=== PATIENT | female | born 1985 | race Caucasian/White ===

== ENCOUNTER 2016-06-10 17:43 | Emergency (ER) | payer OTHER ==
[~2016-06-10] VITALS: Wt 114.8 kg
--- NOTE | ~2016-06-10 | EKG ---
[place], [place] ELECTROCARDIOGRAM REPORT NAME: AMISHA BAI UNIT #: [id number] ROOM: DOCTOR: EVER BOTELLO MD BIRTHDATE: [birth year] DOS: 06/10/2016 TIME: 1849 hours. Normal sinus rhythm at 78 beats per minute. The tracing is normal. No previous tracing is available for comparison. EVER BOTELLO MD CM:EKGRPT:ELECTROCARDIOGRAM REPORT [id number] EVER BOTELLO MD
[~2016-06-10 17:43] MED LIST: AMOXIL500 MG PO; CLARITIN10 MG PO; CLEOCIN150 MG PO; COLACE100 MG PO; DIFLUCAN150 MG PO; HYDROCODONE BIT1 T11 PO; IRON325 M1 PO; KEFLEX500 MG PO; LEXAPRO20 MG PO; MIDRIN (DURADR1 CAP PO; MOTRIN800 MG PO; Motrin,Rufen800 MG PO; NKHM; NORCO 5-325 TA1 EACH PO; OMNICEF300 MG PO; PERCOCET 325 MG1 TA2 PO; PREDNICOT20 MG PO; PRENATAL1 TA1 PO; PRILOSEC40 M1 PO; VICODIN 5/500 505 MG PO; VICODIN ES 7501 TAB PO; ZANTAC 150150 MG PO; ZYRTEC10 M2 PO; Zofran4 MG PO
[2016-06-10] MEDS ORDERED: COREG3.125 MG PO (18:32)
[2016-06-10 18:56] LABS: BASO % 0.6 % (0.0-1.0); EOS # 0.2 10*3/uL (0.0-0.4); EOS % 2.8 % (1.0-4.0); HEMATOCRIT 37.9 % (37.0-47.0); LYMPH # 1.4 10*3/uL (1.3-4.4); LYMPH % 19.6 % (27.0-41.0); MEAN CELL VOLUME 81.5 fl (81.0-99.0); MEAN CORPUSCULAR HGB 25.8 pg (27.0-31.0); MEAN CORPUSCULAR HGB CONC 31.7 g/dl (33.0-37.0); MEAN PLATELET VOLUME 9.4 fl (9.6-12.3); MONO # 0.4 10*3/uL (0.1-1.0); MONO % 5.6 % (3.0-9.0); NEUT # 5.1 10*3/uL (2.3-7.9); NEUT % 71.3 % (47.0-73.0); PLATELET COUNT AUTOMATED 306 10*3/uL (130-400); RED BLOOD COUNT 4.65 10*6/uL (4.10-5.10); RED CELL DISTRI WIDTH 14.8 % (0-14.5); WHITE BLOOD COUNT 7.2 10*3/uL (4.8-10.8)
[2016-06-10 19:13] LABS: ALBUMIN 3.7 gm/dl (3.1-4.5); ALKALINE PHOSPHATASE 83 U/L (45-117); BILIRUBIN, TOTAL 0.3 mg/dl (0.2-1.0); BUN 8 mg/dl (7-24); C-REACTIVE PROTEIN 0.78 MG/DL (0-0.3); CARBON DIOXIDE 27 mmol/L (21-32); CHLORIDE 102 mmol/L (98-107); CPK 57 U/L (26-192); EST GLOM FILT AFRICAN AMERICAN > 60 ml/min; GLUCOSE 119 mg/dL (65-99); LDH 145 U/L (84-246); MAGNESIUM 2.1 mg/dL (1.5-2.1); POTASSIUM 4.1 mmol/L (3.5-5.1); SGOT/AST 18 IU/L (3-35); SGPT/ALT 24 U/L (12-78); SODIUM 139 mmol/L (136-145); TOTAL PROTEIN 7.9 gm/dL (6.4-8.2)
[2016-06-10 19:28] LABS: CKMB < 0.5 ng/ml (0.5-3.6)
== END 2016-06-10 22:09 | disposition home or self-care (01) ==
LOC: ED 17:43
PROVIDERS: Nurse Practitioner Family
DX: I10 Essential (primary) hypertension (principal); K21.9 Gastro-esophageal reflux disease without esophagitis; Z88.6 Allergy status to analgesic agent; Z79.899 Other long term (current) drug therapy

== ENCOUNTER 2016-10-13 16:29 | Emergency (ER) | payer SELFPAY ==
[~2016-10-13] VITALS: Ht 175.2 cm; Wt 113.4 kg
[~2016-10-13 16:29] MED LIST changes: +COREG3.125 MG PO
[2016-10-13] MEDS ORDERED: Motrin,Rufen800 MG PO (17:50)
[2016-10-13] MEDS ORDERED: ULTRAM50 MG PO (17:50)
== END 2016-10-13 17:48 | disposition home or self-care (01) ==
LOC: ED 16:29
DX: S93.402A Sprain of unspecified ligament of left ankle, initial encounter (principal); Z88.6 Allergy status to analgesic agent; W10.9XXA Fall (on) (from) unspecified stairs and steps, initial encounter; Y93.89 Activity, other specified; Y92.9 Unspecified place or not applicable; Y99.9 Unspecified external cause status

== ENCOUNTER 2017-01-08 20:27 | Emergency (ER) | payer OTHER ==
[~2017-01-08] VITALS: Ht 175.2 cm; Wt 69.4 kg
[~2017-01-08 20:27] MED LIST changes: +ULTRAM50 MG PO
[2017-01-08] MEDS ORDERED: ANAPROX DS550 MG PO (21:21)
[2017-01-08] MEDS ORDERED: ROBAXIN500 M1 PO (21:21)
== END 2017-01-08 22:09 | disposition home or self-care (01) ==
LOC: ED 20:27
DX: M54.2 Cervicalgia (principal); M54.5 Low back pain; Z88.6 Allergy status to analgesic agent

== ENCOUNTER 2017-03-13 17:35 | Emergency (ER) | payer OTHER ==
[~2017-03-13] VITALS: Ht 175.2 cm; Wt 113.4 kg
[~2017-03-13 17:35] MED LIST changes: +ANAPROX DS550 MG PO; +ROBAXIN500 M1 PO
[2017-03-13] MEDS ORDERED: NAPROSYN500 MG PO (17:57)
== END 2017-03-13 20:34 | disposition home or self-care (01) ==
LOC: ED 17:35
DX: S60.212A Contusion of left wrist, initial encounter (principal); I10 Essential (primary) hypertension; K21.9 Gastro-esophageal reflux disease without esophagitis; Z88.6 Allergy status to analgesic agent; W22.8XXA Striking against or struck by other objects, initial encounter; Y93.89 Activity, other specified; Y92.9 Unspecified place or not applicable; Y99.9 Unspecified external cause status

== ENCOUNTER 2017-04-24 16:28 | Emergency (ER) | payer SELFPAY ==
[~2017-04-24] VITALS: Wt 70.3 kg
[~2017-04-24 16:28] MED LIST changes: +NAPROSYN500 MG PO
[2017-04-24] MEDS ORDERED: FLONASE ALLERG9.9 ML NAS (16:56)
[2017-04-24] MEDS ORDERED: CLARITIN10 MG PO (16:56)
[2017-04-24] MEDS ORDERED: ROBITUSSIN DM 105 ML PO (16:56)
[2017-04-24] MEDS ORDERED: PREDNISONE10 MG PO (16:56)
== END 2017-04-24 18:10 | disposition home or self-care (01) ==
LOC: ED 16:28
DX: B34.9 Viral infection, unspecified (principal); R03.0 Elevated blood-pressure reading, without diagnosis of hypertension; F10.10 Alcohol abuse, uncomplicated; Z88.6 Allergy status to analgesic agent; Z79.899 Other long term (current) drug therapy

== ENCOUNTER 2017-05-09 19:50 | Emergency (ER) | payer OTHER ==
[~2017-05-09] VITALS: Ht 175.2 cm; Wt 113.4 kg
[~2017-05-09 19:50] MED LIST changes: +FLONASE ALLERG9.9 ML NAS; +PREDNISONE10 MG PO; +ROBITUSSIN DM 105 ML PO
[2017-05-09] MEDS ORDERED: Motrin,Rufen800 MG PO (21:33)
== END 2017-05-09 21:48 | disposition home or self-care (01) ==
LOC: ED 19:50
DX: S80.01XA Contusion of right knee, initial encounter (principal); M25.551 Pain in right hip; Z98.890 Other specified postprocedural states; Z79.899 Other long term (current) drug therapy; Z88.5 Allergy status to narcotic agent; W19.XXXA Unspecified fall, initial encounter; Y93.89 Activity, other specified; Y92.69 Other specified industrial and construction area as the place of occurrence of the external cause; Y99.9 Unspecified external cause status

== ENCOUNTER 2017-06-07 20:01 | Emergency (ER) | payer OTHER ==
[~2017-06-07] VITALS: Ht 175.2 cm; Wt 117.9 kg
[2017-06-07] MEDS ORDERED: Motrin,Rufen800 MG PO (21:18)
== END 2017-06-07 21:15 | disposition home or self-care (01) ==
LOC: ED 20:01
DX: S90.112A Contusion of left great toe without damage to nail, initial encounter (principal); K21.9 Gastro-esophageal reflux disease without esophagitis; I10 Essential (primary) hypertension; Z88.6 Allergy status to analgesic agent; W20.8XXA Other cause of strike by thrown, projected or falling object, initial encounter; Y93.89 Activity, other specified; Y92.89 Other specified places as the place of occurrence of the external cause; Y99.8 Other external cause status

== ENCOUNTER 2017-06-28 17:40 | Emergency (ER) | payer OTHER ==
[~2017-06-28] VITALS: Ht 175.2 cm; Wt 108.9 kg
[2017-06-28] MEDS ORDERED: CYCLOBENZAPRINE10 MG PO (18:14)
[2017-06-28] MEDS ORDERED: MEDROL DOSEPAK4 MG PO (18:14)
[2017-06-28] MEDS ORDERED: NAPROSYN500 MG PO (18:14)
[2017-06-29] MEDS ORDERED: ANAPROX DS550 MG PO (23:16)
== END 2017-06-28 18:26 | disposition home or self-care (01) ==
LOC: ED 17:40
DX: S46.911A Strain of unspecified muscle, fascia and tendon at shoulder and upper arm level, right arm, initial encounter (principal); Z98.890 Other specified postprocedural states; Z79.899 Other long term (current) drug therapy; Z88.5 Allergy status to narcotic agent; X50.1XXA Overexertion from prolonged static or awkward postures, initial encounter; Y93.89 Activity, other specified; Y92.89 Other specified places as the place of occurrence of the external cause; Y99.9 Unspecified external cause status

== ENCOUNTER 2017-06-29 22:01 | Emergency (ER) | payer OTHER ==
[~2017-06-29] VITALS: Ht 175.2 cm; Wt 113.4 kg
[~2017-06-29 22:01] MED LIST changes: +CYCLOBENZAPRINE10 MG PO; +MEDROL DOSEPAK4 MG PO
[2017-06-29] MEDS ORDERED: ANAPROX DS550 MG PO (23:16)
== END 2017-06-29 23:51 | disposition home or self-care (01) ==
LOC: ED 22:01
DX: S93.691A Other sprain of right foot, initial encounter (principal); Z88.6 Allergy status to analgesic agent; Z79.899 Other long term (current) drug therapy; W10.8XXA Fall (on) (from) other stairs and steps, initial encounter; Y93.01 Activity, walking, marching and hiking; Y92.89 Other specified places as the place of occurrence of the external cause; Y99.8 Other external cause status

== ENCOUNTER → 2017-07-31 | Outpatient (CLI) | payer OTHER | END | disposition home or self-care (01) | LOC: MRI 11:00 | DX: S92.911D Unspecified fracture of right toe(s), subsequent encounter for fracture with routine healing (principal); S93.324D Dislocation of tarsometatarsal joint of right foot, subsequent encounter; R60.9 Edema, unspecified; X58.XXXD Exposure to other specified factors, subsequent encounter; Z91.81 History of falling ==

== ENCOUNTER → 2017-09-16 | Outpatient (CLI) | payer OTHER | END | disposition home or self-care (01) | LOC: RAD 10:21 | DX: M54.5 Low back pain (principal); M54.16 Radiculopathy, lumbar region; Z91.81 History of falling ==

== ENCOUNTER 2017-12-10 18:02 | Emergency (ER) | payer OTHER ==
[~2017-12-10] VITALS: Ht 175.2 cm; Wt 113.4 kg
[2017-12-10] MEDS ORDERED: Motrin,Rufen800 MG PO (20:04)
== END 2017-12-10 20:20 | disposition home or self-care (01) ==
LOC: ED 18:02
DX: S09.90XA Unspecified injury of head, initial encounter (principal); M54.2 Cervicalgia; Z98.890 Other specified postprocedural states; Z88.5 Allergy status to narcotic agent; W01.198A Fall on same level from slipping, tripping and stumbling with subsequent striking against other object, initial encounter; Y93.89 Activity, other specified; Y92.098 Other place in other non-institutional residence as the place of occurrence of the external cause; Y99.9 Unspecified external cause status

== ENCOUNTER 2018-03-11 19:06 | Emergency (ER) | payer OTHER ==
[~2018-03-11] VITALS: Ht 175.2 cm; Wt 108.9 kg
[2018-03-11] MEDS ORDERED: CEPHALEXIN500 M1 PO (20:09)
== END 2018-03-11 20:37 | disposition home or self-care (01) ==
LOC: ED 19:06
DX: S91.331A Puncture wound without foreign body, right foot, initial encounter (principal); Z23 Encounter for immunization; Z98.890 Other specified postprocedural states; Z88.5 Allergy status to narcotic agent; W22.8XXA Striking against or struck by other objects, initial encounter; Y93.89 Activity, other specified; Y92.89 Other specified places as the place of occurrence of the external cause; Y99.9 Unspecified external cause status

== ENCOUNTER 2019-12-10 16:06 | Emergency (ER) | payer OTHER ==
[~2019-12-10] VITALS: Ht 175.2 cm; Wt 113.4 kg
[~2019-12-10 16:06] MED LIST changes: +CEPHALEXIN500 M1 PO
[2019-12-10 17:33] LABS: BASO % 0.7 % (0.0-1.0); EOS # 0.2 10*3/uL (0.0-0.4); EOS % 3.7 % (1.0-4.0); HEMATOCRIT 36.1 % (37.0-47.0); LYMPH # 1.2 10*3/uL (1.3-4.4); LYMPH % 21.7 % (27.0-41.0); MEAN CELL VOLUME 80.9 fl (81.0-99.0); MEAN CORPUSCULAR HGB CONC 29.6 g/dl (33.0-37.0); MEAN PLATELET VOLUME 9.8 fl (9.6-12.3); MONO # 0.5 10*3/uL (0.1-1.0); MONO % 8.3 % (3.0-9.0); NEUT # 3.7 10*3/uL (2.3-7.9); NEUT % 65.4 % (47.0-73.0); PLATELET COUNT AUTOMATED 269 10*3/uL (130-400); RED BLOOD COUNT 4.46 10*6/uL (4.10-5.10); RED CELL DISTRI WIDTH 15.5 % (0-14.5); WHITE BLOOD COUNT 5.6 10*3/uL (4.8-10.8)
[2019-12-10 17:44] LABS: ACT PARTIAL THROMBO TIME 28.2 SECONDS (20.0-32.1)
[2019-12-10 18:02] LABS: ALBUMIN 3.5 gm/dl (3.1-4.5); ALKALINE PHOSPHATASE 84 U/L (45-117); BUN 10 mg/dl (7-24); CHLORIDE 111 mmol/L (98-107); CREATININE 0.82 mg/dL (0.55-1.02); LIPASE 71 U/L (73-393); POTASSIUM 4.3 mmol/L (3.5-5.1); SGOT/AST 46 IU/L (3-35); SGPT/ALT 49 U/L (12-78); SODIUM 140 mmol/L (136-145); TOTAL PROTEIN 7.4 gm/dL (6.4-8.2)
[2019-12-10 18:13] LABS: BETA-HCG, QUANT < 1.0 mIU/mL (1-3); TROPONIN I < 0.015 ng/ml (<0.045)
[2019-12-10 18:34] LABS: BACTERIA 1+; BILIRUBIN NEGATIVE (NEGATIVE); BLOOD NEGATIVE (NEGATIVE); CLARITY CLEAR (CLEAR); COLOR YELLOW (YELLOW); EPITHELIAL CELLS 41-50; GLUCOSE NEGATIVE (NEGATIVE); KETONE TRACE (NEGATIVE); LEUKO ESTERASE NEGATIVE (NEGATIVE); NITRITE NEGATIVE (NEGATIVE); RBC 0-2 rbc/hpf (0-2); UROBILINOGEN 0.2 E.U./dl (0.2-1.0)
== END 2019-12-10 16:30 | disposition home or self-care (01) ==
LOC: ED 16:06
PROVIDERS: Emergency Medicine
DX: I10 Essential (primary) hypertension (principal); F17.200 Nicotine dependence, unspecified, uncomplicated; Z88.5 Allergy status to narcotic agent; Z90.49 Acquired absence of other specified parts of digestive tract

== ENCOUNTER 2020-09-16 16:31 | Emergency (ER) | payer BC ==
[~2020-09-16] VITALS: Ht 175.2 cm; Wt 113.4 kg
== END 2020-09-16 18:07 | disposition home or self-care (01) ==
LOC: ED 16:31
DX: J02.8 Acute pharyngitis due to other specified organisms (principal); K21.9 Gastro-esophageal reflux disease without esophagitis; I10 Essential (primary) hypertension; Z20.822 Contact with and (suspected) exposure to COVID-19; Z98.890 Other specified postprocedural states

== ENCOUNTER 2021-09-29 08:50 | Emergency (ER) | payer OTHER ==
[~2021-09-29] VITALS: Ht 175.2 cm; Wt 117.9 kg
[2021-09-29] MEDS ORDERED: CEPHALEXIN500 M1 PO (10:54)
[2021-09-29] MEDS ORDERED: NAPROXEN250 MG PO (10:54)
[2021-09-29] MEDS ORDERED: TYLENOL325 M1 PO (10:54)
== END 2021-09-29 11:15 | disposition home or self-care (01) ==
LOC: ED 08:50
DX: S92.424A Nondisplaced fracture of distal phalanx of right great toe, initial encounter for closed fracture (principal); S20.212A Contusion of left front wall of thorax, initial encounter; S49.92XA Unspecified injury of left shoulder and upper arm, initial encounter; K21.9 Gastro-esophageal reflux disease without esophagitis; I10 Essential (primary) hypertension; Z88.6 Allergy status to analgesic agent; Z98.890 Other specified postprocedural states; Z90.49 Acquired absence of other specified parts of digestive tract; W10.8XXA Fall (on) (from) other stairs and steps, initial encounter; Y93.89 Activity, other specified; Y92.89 Other specified places as the place of occurrence of the external cause; Y99.8 Other external cause status

== ENCOUNTER → 2022-09-17 | Outpatient (CLI) | payer OTHER ==
[~2022-09-17] MED LIST changes: +NAPROXEN250 MG PO; +TYLENOL325 M1 PO
[2022-09-17 11:08] LABS: BASO # 0.1 10*3/uL (0.0-0.1); BASO % 0.8 % (0.0-1.0); EOS # 0.2 10*3/uL (0.0-0.4); EOS % 2.8 % (1.0-4.0); HEMATOCRIT 38.6 % (37.0-47.0); LYMPH # 1.5 10*3/uL (1.3-4.4); LYMPH % 21.1 % (27.0-41.0); MEAN CELL VOLUME 77.5 fl (81.0-99.0); MEAN CORPUSCULAR HGB 23.5 pg (27.0-31.0); MEAN CORPUSCULAR HGB CONC 30.3 g/dl (33.0-37.0); MEAN PLATELET VOLUME 10.3 fl (9.6-12.3); MONO # 0.4 10*3/uL (0.1-1.0); MONO % 5.2 % (3.0-9.0); NEUT % 69.8 % (47.0-73.0); PLATELET COUNT AUTOMATED 279 10*3/uL (130-400); RED BLOOD COUNT 4.98 10*6/uL (4.10-5.10); RED CELL DISTRI WIDTH 17.4 % (0-14.5); WHITE BLOOD COUNT 7.2 10*3/uL (4.8-10.8)
[2022-09-17 11:38] LABS: ALKALINE PHOSPHATASE 98 U/L (46-116); BUN 8 mg/dl (9-23); CHLORIDE 101 mmol/L (98-107); POTASSIUM 3.4 mmol/L (3.4-5.1); SGPT/ALT 25 U/L (10-49); TOTAL PROTEIN 7.6 gm/dL (6.0-8.0)
== END | disposition home or self-care (01) ==
LOC: LAB 10:16
PROVIDERS: ATTEND Nurse Practitioner Family
DX: I10 Essential (primary) hypertension (principal); I25.2 Old myocardial infarction

== ENCOUNTER → 2022-10-02 | Outpatient (CLI) | payer OTHER | END | disposition home or self-care (01) | LOC: CARD 09:48 | PROVIDERS: ATTEND Internal Medicine Cardiovascular Disease | DX: R00.2 Palpitations (principal); R00.0 Tachycardia, unspecified ==

== ENCOUNTER → 2022-10-16 | Outpatient (CLI) | payer OTHER | END | disposition home or self-care (01) | LOC: CARD 01:06 | PROVIDERS: ATTEND Internal Medicine Cardiovascular Disease | DX: R00.2 Palpitations (principal) ==

== ENCOUNTER → 2023-12-31 | Outpatient (CLI) | payer OTHER | END | disposition home or self-care (01) | LOC: MAMMO 07:43 | PROVIDERS: ATTEND Nurse Practitioner Family | DX: N63.11 Unspecified lump in the right breast, upper outer quadrant (principal); N64.4 Mastodynia ==

== ENCOUNTER → 2024-09-01 | Outpatient (CLI) | payer OTHER ==
[2024-09-01 09:20] LABS: ALKALINE PHOSPHATASE 117 U/L (46-116); BUN 11 mg/dl (9-23); CHLORIDE 105 mmol/L (98-107); CHOLESTEROL 178 mg/dL (<200); LDL CHOLESTEROL 98 mg/dL (9-159); POTASSIUM 3.9 mmol/L (3.4-5.1); SGPT/ALT 36 U/L (5-49); TOTAL PROTEIN 7.3 gm/dL (6.0-8.0); TRIGLYCERIDES 244 mg/dl (<150)
[2024-09-01 13:26] LABS: HEMATOCRIT 37.5 % (37.0-47.0); MEAN CELL VOLUME 95.7 fl (81.0-99.0); MEAN CORPUSCULAR HGB 29.6 pg (27.0-31.0); MEAN CORPUSCULAR HGB CONC 30.9 g/dl (33.0-37.0); MEAN PLATELET VOLUME 10.4 fl (9.6-12.3); PLATELET COUNT AUTOMATED 194 10*3/uL (130-400); RED BLOOD COUNT 3.92 10*6/uL (4.10-5.10); RED CELL DISTRI WIDTH 14.5 % (0-14.5); WHITE BLOOD COUNT 9.4 10*3/uL (4.8-10.8)
[2024-09-01 13:27] LABS: MANUAL DIFF REFLEX YES
[2024-09-01 13:49] LABS: BASOPHILS 2 % (0-1); TOTAL CELLS COUNTED 100 #CELLS
[2024-09-01 13:50] LABS: PLATELET SUFFICIENCY NORMAL (NORMAL)
== END | disposition home or self-care (01) ==
LOC: LAB 08:10
PROVIDERS: Nurse Practitioner Primary Care; ATTEND Nurse Practitioner Family
DX: I10 Essential (primary) hypertension (principal); E66.01 Morbid (severe) obesity due to excess calories

== ENCOUNTER → 2024-12-20 | Outpatient (CLI) | payer OTHER ==
[2024-12-20 14:37] LABS: BUN 9 mg/dl (9-23)
== END | disposition home or self-care (01) ==
LOC: US 09:00 → LAB 13:40 → US 14:30
PROVIDERS: ATTEND Obstetrics & Gynecology Gynecologic Oncology
DX: Z15.01 Genetic susceptibility to malignant neoplasm of breast (principal); Z15.09 Genetic susceptibility to other malignant neoplasm

== ENCOUNTER → 2025-01-26 | Outpatient (CLI) | payer OTHER ==
[2025-01-26 12:07] LABS: BASO # 0.0 10*3/uL (0.0-0.1); BASO % 0.5 % (0.0-1.0); EOS # 0.2 10*3/uL (0.0-0.4); EOS % 5.7 % (1.0-4.0); MEAN CELL VOLUME 89.4 fl (81.0-99.0); MEAN CORPUSCULAR HGB 28.3 pg (27.0-31.0); MEAN PLATELET VOLUME 10.2 fl (9.6-12.3); MONO # 0.3 10*3/uL (0.1-1.0); MONO % 8.5 % (3.0-9.0); NEUT # 2.7 10*3/uL (2.3-7.9); NEUT % 69.6 % (47.0-73.0); NUCLEATED RED BLOOD CELL 0.0 % (0.0-0.0); NUCLEATED RED BLOOD CELL 0.0 10*3/uL (0.0-0.0); PLATELET COUNT AUTOMATED 186 10*3/uL (130-400); RED CELL DISTRI WIDTH 14.4 % (0-14.5)
[2025-01-26 12:53] LABS: BUN 6 mg/dl (9-23); SGPT/ALT 27 U/L (5-49)
[2025-01-26 13:21] LABS: ACT PARTIAL THROMBO TIME 25.8 SECONDS (20.0-32.1)
== END | disposition home or self-care (01) ==
LOC: LAB 10:43
PROVIDERS: ATTEND Physician Assistant
DX: Z01.812 Encounter for preprocedural laboratory examination (principal); I48.91 Unspecified atrial fibrillation

== ENCOUNTER 2025-03-04 17:25 | Emergency (ER) | payer OTHER ==
[2025-03-04] MEDS ORDERED: IOHEXOL 300 MG/ML 100 ML VIAL IV ONE (17:55)
[2025-03-04 18:03] LABS: BASO # 0.0 10*3/uL (0.0-0.1); BASO % 0.9 % (0.0-1.0); EOS # 0.2 10*3/uL (0.0-0.4); EOS % 3.9 % (1.0-4.0); MEAN CELL VOLUME 90.6 fl (81.0-99.0); MEAN CORPUSCULAR HGB 28.4 pg (27.0-31.0); MEAN PLATELET VOLUME 9.8 fl (9.6-12.3); MONO # 0.5 10*3/uL (0.1-1.0); MONO % 11.2 % (3.0-9.0); NEUT # 3.2 10*3/uL (2.3-7.9); NEUT % 68.3 % (47.0-73.0); NUCLEATED RED BLOOD CELL 0.0 % (0.0-0.0); NUCLEATED RED BLOOD CELL 0.0 10*3/uL (0.0-0.0); PLATELET COUNT AUTOMATED 228 10*3/uL (130-400); RED CELL DISTRI WIDTH 13.2 % (0-14.5)
[2025-03-04 18:29] LABS: BUN 8.0 mg/dl (9-23)
[2025-03-04] MEDS ORDERED: SODIUM CHLORIDE 0.9% 1,000 ML IV ONE (18:50)
[2025-03-04] MEDS ORDERED: Promethazine Hydrochloride 25 MG/ML VIAL IV ONE (19:10)
== END 2025-03-04 22:50 | disposition home or self-care (01) ==
LOC: ED 17:25
PROVIDERS: Nurse Practitioner Family
DX: R10.32 Left lower quadrant pain (principal); R11.10 Vomiting, unspecified; Z90.711 Acquired absence of uterus with remaining cervical stump; Z85.3 Personal history of malignant neoplasm of breast; Z88.5 Allergy status to narcotic agent; Z79.899 Other long term (current) drug therapy; Z90.49 Acquired absence of other specified parts of digestive tract

== ENCOUNTER 2025-05-13 09:53 | Emergency (ER) | payer OTHER ==
[~2025-05-13] VITALS: Ht 175.2 cm; Wt 94.3 kg
[2025-05-13 11:07] LABS: BASO # 0.0 10*3/uL (0.0-0.1); BASO % 0.4 % (0.0-1.0); EOS # 0.1 10*3/uL (0.0-0.4); EOS % 3.0 % (1.0-4.0); MEAN CELL VOLUME 88.4 fl (81.0-99.0); MEAN CORPUSCULAR HGB 27.2 pg (27.0-31.0); MEAN PLATELET VOLUME 10.0 fl (9.6-12.3); MONO # 0.4 10*3/uL (0.1-1.0); MONO % 15.2 % (3.0-9.0); NEUT # 1.1 10*3/uL (2.3-7.9); NEUT % 48.9 % (47.0-73.0); NUCLEATED RED BLOOD CELL 0.0 % (0.0-0.0); NUCLEATED RED BLOOD CELL 0.0 10*3/uL (0.0-0.0); PLATELET COUNT AUTOMATED 192 10*3/uL (130-400); RED CELL DISTRI WIDTH 14.1 % (0-14.5)
[2025-05-13 11:26] LABS: BUN 9 mg/dl (9-23)
[2025-05-13] MEDS ORDERED: FLEET ENEMA 13133 ML R (12:08)
== END 2025-05-13 12:32 | disposition home or self-care (01) ==
LOC: ED 09:53
PROVIDERS: Student in an Organized Health Care Education/Training Program
DX: K59.00 Constipation, unspecified (principal); I10 Essential (primary) hypertension; Z98.890 Other specified postprocedural states; Z90.49 Acquired absence of other specified parts of digestive tract; Z88.5 Allergy status to narcotic agent